=== PATIENT | male | born 1990 | race African-American/Black ===

== ENCOUNTER 2022-03-23 15:24 | Emergency (ER) | payer MEDICAID, OTHER ==
[~2022-03-23] VITALS: Ht 175.3 cm; Wt 90.7 kg
[2022-03-23 15:41] VITALS: BP 127/67
--- NOTE | 2022-03-23 15:53 | NUR ---
DR GUEVARA AT BEDSIDE EVALUATING PT
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
[2022-03-23] MEDS ORDERED: HYDR-5080 PO (16:14)
[2022-03-23] MEDS ORDERED: NALO4SPR NS (16:14)
--- NOTE | 2022-03-23 16:27 | NUR ---
Patient discharged with v/s stable. Written and verbal after care instructions given and explained. Patient alert, oriented and verbalized understanding of instructions. Ambulatory with steady gait. All questions addressed prior to discharge. ID band removed. Patient advised to follow up with PMD. Rx of NORCO 7.5-325 AND NALOXONE given. Patient educated on indication of medication including possible reaction and side effects. Opportunity to ask questions provided and answered.
== END 2022-03-23 16:27 | disposition home or self-care (01) ==
LOC: MED 15:24
DX: S29.011A Strain of muscle and tendon of front wall of thorax, initial encounter (principal); K91.2 Postsurgical malabsorption, not elsewhere classified; Z98.890 Other specified postprocedural states; Z79.899 Other long term (current) drug therapy; Z79.891 Long term (current) use of opiate analgesic; X58.XXXA Exposure to other specified factors, initial encounter; Y92.89 Other specified places as the place of occurrence of the external cause; Y93.89 Activity, other specified; Y99.8 Other external cause status
CPT/HCPCS: 99283